=== PATIENT | male | born 1940 | race Caucasian/White ===

== ENCOUNTER 2017-12-16 15:30 | Emergency (ER) | payer MEDICARE, BC ==
[2017-12-16 16:57] LABS: ABSOLUTE BASOPHILS # (AUTO) 0.1 10^3/uL (0.0-0.2); ABSOLUTE EOSINOPHILS # (AUTO) 0.1 10^3/uL (0.0-0.6); ABSOLUTE LYMPHOCYTES (AUTO) 1.4 10^3/uL (0.5-4.7); ABSOLUTE MONOCYTES (AUTO) 0.4 10^3/uL (0.1-1.4); ABSOLUTE NEUT (AUTO) 4.9 10^3/uL (1.7-8.2); BASOPHILS % (AUTO) 1.1 % (0-2); EOSINOPHILS % (AUTO) 1.2 % (0-6); HEMOGLOBIN 10.7 g/dL (13.5-17.0); LYMPHOCYTES % (AUTO) 19.9 % (13-45); MEAN CORPUSCULAR HGB CONC 33.6 g/dL (32.0-36.0); MEAN CORPUSCULAR VOLUME 95 fl (80-97); MONOCYTES % (AUTO) 5.8 % (3-13); PLATELET COUNT 187 10^3/uL (150-450); RED BLOOD COUNT 3.35 10^6/uL (4.35-5.55); RED CELL DISTRIBUTION WIDTH 14.6 % (11.5-14.0); TOTAL CELLS COUNTED % (AUTO) 100 %; WHITE BLOOD COUNT 6.9 10^3/uL (4.0-10.5)
[2017-12-16] MEDS ORDERED: NITROGLYCERIN 0.4 MG/TAB 25 TAB/BOTTLE SL PRN (16:58)
[2017-12-16 17:08] LABS: APPEARANCE,URINE CLOUDY; BILIRUBIN,URINE NEGATIVE (NEGATIVE); COLOR,URINE RED; GLUCOSE, URINE NEGATIVE (NEGATIVE); KETONES,URINE NEGATIVE (NEGATIVE); LEUKOCYTE ESTERASE,URINE NEGATIVE (NEGATIVE); NITRITE,URINE NEGATIVE (NEGATIVE); PROTEIN,URINE 100 mg/dL (NEGATIVE); URINE SPECIFIC GRAVITY 1.012; UROBILINOGEN,URINE NEGATIVE mg/dL (<2.0)
[2017-12-16 17:10] LABS: INTERNATIONAL RATION (INR) 0.96; PARTIAL THROMBOPLASTIN TIME 29.3 SEC (23.5-35.8); PROTHROMBIN TIME 13.4 SEC (11.4-15.4)
[2017-12-16 17:14] LABS: ALANINE AMINOTRANSFERASE 39 U/L (21-72); ALKALINE PHOSPHATASE 48 U/L (38-126); ANION GAP 11 (5-19); ASPARTATE AMINO TRANSFERASE 29 U/L (17-59); BILIRUBIN,DIRECT 0.1 mg/dL (0.0-0.4); BILIRUBIN,TOTAL 0.4 mg/dL (0.2-1.3); BLOOD UREA NITROGEN 18 mg/dL (7-20); CALCIUM 9.6 mg/dL (8.4-10.2); CARBON DIOXIDE 22 mmol/L (22-30); CHLORIDE 99 mmol/L (98-107); GLUCOSE 146 mg/dL (75-110); POTASSIUM 4.2 mmol/L (3.6-5.0); TOTAL PROTEIN 6.2 g/dL (6.3-8.2)
--- NOTE | 2017-12-16 17:32 | RADIOLOGY REPORT (SQ) ---
EXAM DESCRIPTION: CHEST SINGLE VIEW COMPLETED DATE/TIME: 12/16/2017 5:16 pm REASON FOR STUDY: chest pain COMPARISON: None. EXAM PARAMETERS: NUMBER OF VIEWS: One view. TECHNIQUE: Single frontal radiographic view of the chest acquired. RADIATION DOSE: NA LIMITATIONS: None. FINDINGS: LUNGS AND PLEURA: Prominent interstitial lung markings and Patrick B-lines throughout. No definite pleural effusion at this time. MEDIASTINUM AND HILAR STRUCTURES: Prominent hilar vasculature. HEART AND VASCULAR STRUCTURES: Stable size, mildly enlarged. BONES: No acute findings. HARDWARE: None in the chest. OTHER: No other significant finding. IMPRESSION: Findings consistent with pulmonary edema/congestive heart failure. TECHNICAL DOCUMENTATION: JOB ID: [id number] [employer]- All Rights Reserved Reading location - IP/workstation name: [email or web address]
[2017-12-16 17:34] LABS: CREATINE KINASE MB 3.17 ng/mL (<4.55)
[2017-12-16 17:36] LABS: TROPONIN I 0.307 ng/mL
[2017-12-16] MEDS ORDERED: ASPIRIN 325 MG TABLET PO ONE (17:42)
[2017-12-16] MEDS ORDERED: FUROSEMIDE INJ/PF 40 MG/4 ML SDV IV ONE (19:12)
--- NOTE | 2017-12-16 19:44 | ER Document Report ---
ED GI/ - General Mode of Arrival: Ambulatory Information source: Patient TRAVEL OUTSIDE OF THE [place] IN LAST 30 DAYS: No <CHERISE BLANK - Last Filed: 12/16/17 21:25> <YAZMIN SMITH - Last Filed: 12/16/17 23:01> - General Chief Complaint: Urinary Retention Stated Complaint: URINARY ISSUES Time Seen by Provider: 12/16/17 16:21 Notes: Patient is a 77 year old male that presents to the emergency department today with complaints of urinary retention beginning at 0900 this morning. Patient states he woke up this morning at 0300 and was having difficulty with urination and was able to eventually "break the clot free" and urinate but he has been unable to void since 0900. Patient states that he has had hematuria pretty consistently since Nov 07. Patient states he has a timer set so every 45 minutes he urinates as instructed by urology to prevent clots from obstructing flow, but since this morning he has been unable to. Patient also mentions a "chest discomfort" that is unlike his GERD or previous chest pain that occurred prior to having stents placed. raises concern that she thinks the patient may be having a heart attack. (CHERISE BLANK) - Related Data Allergies/Adverse Reactions: No Known Allergies Allergy (Verified 08/19/13 18:31) Past Medical History - General Information source: Patient - Social History Smoking Status: Former Smoker Frequency of alcohol use: None Drug Abuse: None Lives with: Family Family History: Reviewed & Not Pertinent Patient has suicidal ideation: No Patient has homicidal ideation: No - Past Medical History Cardiac Medical History: Reports: Hx Atrial Fibrillation, Hx Hypercholesterolemia, Hx Hypertension Renal/ Medical History: Reports: Hx Benign Prostatic Hyperplasia Malignancy Medical History: Reports Hx Prostate Cancer Past Surgical History: Reports: Hx Cardiac Catheterization - stent, Hx Cardiac Surgery - bypass 1996 - Immunizations Hx Diphtheria, Pertussis, Tetanus Vaccination: No Hx Pneumococcal Vaccination: 10/08/09 <CHERISE BLANK - Last Filed: 12/16/17 21:25> Review of Systems - Review of Systems Constitutional: No symptoms reported EENT: No symptoms reported Cardiovascular: See HPI, Chest pain Respiratory: No symptoms reported Gastrointestinal: No symptoms reported Genitourinary: See HPI, Hematuria, Retention Male Genitourinary: No symptoms reported Musculoskeletal: No symptoms reported Skin: No symptoms reported Hematologic/Lymphatic: No symptoms reported Neurological/Psychological: No symptoms reported -: Yes All other systems reviewed and negative <CHERISE BLANK - Last Filed: 12/16/17 21:25> Physical Exam <CHERISE BLANK - Last Filed: 12/16/17 21:25> <YAZMIN SMITH - Last Filed: 12/16/17 23:01> - Vital signs Vitals: Temp Pulse Resp BP Pulse Ox 98.1 F 87 18 153/90 H 92 12/16/17 15:45 12/16/17 15:45 12/16/17 15:45 12/16/17 15:45 12/16/17 15:45 - Notes Notes: PHYSICAL EXAM GENERAL: Alert, interacts well. No acute distress. HEAD: Normocephalic, atraumatic. EYES: Pupils equal, round, and reactive to light. Extraocular movements intact. ENT: Oral mucosa moist, tongue midline. NECK: Full range of motion. Supple. Trachea midline. LUNGS: Clear to auscultation bilaterally, no wheezes, rales, or rhonchi. No respiratory distress. HEART: Regular rate and rhythm. No murmurs, gallops, or rubs. ABDOMEN: Soft, non-tender. Non-distended with cadena catheter in place. Bowel sounds present in all 4 quadrants. No guarding, rigidity, or rebound. MALE GENITOURINARY: Cadena catheter in place draining urine which is dark red in color with visible clots. EXTREMITIES: Moves all 4 extremities spontaneously. No edema, radial and dorsalis pedis pulses 2/4 bilaterally. No cyanosis. NEUROLOGICAL: Alert and oriented x3. Normal speech. PSYCH: Normal affect, normal mood. SKIN: Warm, dry, normal turgor. No rashes or lesions noted. (CHERISE BLANK) Course - Laboratory Result Diagrams: 12/16/17 16:37 12/16/17 16:37 <CHERISE BLANK - Last Filed: 12/16/17 21:25> - Laboratory Result Diagrams: 12/16/17 16:37 12/16/17 16:37 <YAZMIN SMITH - Last Filed: 12/16/17 23:01> - Re-evaluation Re-evalutation: 12/16/17 19:47 Patient with acute urinary retention due to obstruction from hematuria, Cadena catheter was placed and pain is relieved, large amount of grossly bloody urine was obtained, this is a known problem and is ongoing after having had prostatic seeding, he has been instructed to void every 45 minutes in order to prevent blood clots. Patient states that he has not been voiding quite every 45 minutes because he is getting frustrated doing this. While we were discussing this problem his mentioned that he had had some chest discomfort earlier in the day and as he has had multiple bypass surgeries and stents she wanted us to do a cardiac workup. Patient is currently denying any chest discomfort and declines nitroglycerin as well as refusing aspirin. CBC shows anemia with hemoglobin 10.7, does not meet transfusion criteria, coags unremarkable, sodium slightly low at 132.0, troponin is positive at 0.307 significant for non-STEMI, proBNP also elevated at 4360, congestive heart failure is a new finding for him , curly B-lines and pulmonary edema are seen on the chest x-ray as well although I do not hear crackles on his lung exam and he does not have any peripheral edema. Patient now agrees to accept the aspirin, still denies any ongoing chest pain, has also been given Lasix for the new onset congestive heart failure, he is now mildly hypoxic and will be placed on oxygen. 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 Urinalysis of note shows large amount of blood but no signs of infection. Cadena catheter is still flowing well. Cadena catheter was manually irrigated. I did discuss this case with the hospitalist Dr. Irving at [facility] who agrees to accept the patient to her service. 12/16/17 23:00 Patient was rechecked by me just immediately prior to departure. He was complaining that he was having some urine leaking around the Cadena catheter, the nurse per my instructions did irrigate the Cadena catheter, urine was still flowing freely through the catheter as well as around it, nurse was instructed to add a little bit more air to the Cadena catheter balloon. Patient is stable for transfer to [facility]. (YAZMIN SMITH) - Vital Signs Vital signs: Temp Pulse Resp BP Pulse Ox 98.6 F 73 19 123/75 95 12/16/17 19:21 12/16/17 22:08 12/16/17 22:08 12/16/17 22:08 12/16/17 22:08 - Laboratory Laboratory results interpreted by me: 12/16/17 12/16/17 12/16/17 16:20 16:37 16:37 RBC 3.35 L Hgb 10.7 L Hct 32.0 L RDW 14.6 H Sodium 132.0 L Glucose 146 H NT-Pro-B Natriuret Pep Total Protein 6.2 L Urine Protein 100 H Urine Blood LARGE H Urine Ascorbic Acid 40 H 12/16/17 16:37 RBC Hgb Hct RDW Sodium Glucose NT-Pro-B Natriuret Pep 4360 H Total Protein Urine Protein Urine Blood Urine Ascorbic Acid - EKG Interpretation by Me Additional EKG results interpreted by me: 12/16/17 19:49 EKG shows sinus rhythm at a rate of 75, first-degree AV block, no ST segment elevations or depressions, diffuse T-wave flattening noted across the limb leads , also lateral leads. Normal R-wave progression. Per my interpretation. ( YAZMIN SMITH) Discharge <CHERISE BLANK - Last Filed: 12/16/17 21:25> <YAZMIN SMITH - Last Filed: 12/16/17 23:01> - Discharge Clinical Impression: Non-STEMI (non-ST elevated myocardial infarction), Acute urinary obstruction Congestive heart failure Qualifiers: Heart failure type: unspecified Heart failure chronicity: acute Qualified Code( s): I50.9 - Heart failure, unspecified Hematuria Qualifiers: Hematuria type: gross Qualified Code(s): R31.0 - Gross hematuria Condition: Fair Disposition: [facility] Referrals: JASMIN TRUJILLO III, MD [Primary Care Provider] - Follow up as needed Scribe Attestation: 12/16/17 23:01 I personally performed the services described in the documentation, reviewed and edited the documentation which was dictated to the scribe in my presence, and it accurately records my words and actions. (YAZMIN SMITH) Scribe Documentation - Scribe Written by Scribe:: Jenae Quezada, 12/16/2017 2020 acting as scribe for :: Kaylin <CHERISE BLANK - Last Filed: 12/16/17 21:25>
--- NOTE | 2017-12-16 21:51 | EKG REPORT ---
SEVERITY:- ABNORMAL ECG - SINUS RHYTHM VENTRICULAR PREMATURE COMPLEX FIRST DEGREE AV BLOCK NONSPECIFIC INTRAVENTRICULAR CONDUCTION DELAY : Confirmed by: Melisa Castellanos 16-Dec-2017 21:51:23
[2017-12-16 21:55] VITALS: BP 123/75
== END 2017-12-16 22:11 | disposition short-term general hospital (02) ==
LOC: ER 15:30
DX: I21.4 Non-ST elevation (NSTEMI) myocardial infarction (principal); I50.9 Heart failure, unspecified; N13.9 Obstructive and reflux uropathy, unspecified; R33.9 Retention of urine, unspecified; I48.91 Unspecified atrial fibrillation; Z95.1 Presence of aortocoronary bypass graft; Z87.891 Personal history of nicotine dependence
CPT/HCPCS: 93005; 99285; 51702; 96374; 36415; 82553; 82550; 85025; 85610; 85730; 80053; 81001; 84484; 83880; 71045; 93010; A9270; J1940